=== PATIENT | female | born 1955 | race Caucasian/White ===

== ENCOUNTER 2017-07-10 06:17 | Day surgery (SDC) | payer OTHER ==
[~2017-07-10] VITALS: Ht 154.9 cm; Wt 87.3 kg
[2017-07-10 06:40] VITALS: Ht 154.9 cm; Wt 87.3 kg
[2017-07-10] MEDS ORDERED: LIDOCAINE 2% (SDV) 5 ML INJ ONE (07:11)
[2017-07-10] MEDS ORDERED: PROPOFOL 40 ML ONE (07:11)
[2017-07-10 07:14] VITALS: BP 137/85; RESP 14
[2017-07-10] MEDS ORDERED: OMEPRAZOLE (07:23)
[2017-07-10] MEDS ORDERED: ASPIRIN (07:23)
[2017-07-10] MEDS ORDERED: HTN MED (07:23)
[2017-07-10] MEDS ORDERED: FENTAnyl 50 MCG/ML VIAL ONE (07:30)
--- NOTE | 2017-07-10 08:19 | OPPN ---
Date/Time of Note Date/Time of Note DATE: 07/10/17 TIME: 08:18 Operative Report Preoperative Diagnosis Change in bowel habit Lower abdominal pain Postoperative Diagnosis Internal and external hemorrhoids Sigmoid colon polyp Operation/Procedure Performed Colonoscopy and biopsy Provider: MARQUIS VIGIL MD Anesthesia Type: MAC Estimated blood loss: none Transfusion Required: no Specimens Sigmoid colon polyp Grafts/Implants: none Complications: no MARQUIS VIGIL MD Jul 10, 2017 08:19
[2017-07-10 08:36] VITALS: BP 138/78; RESP 14
--- NOTE | 2017-07-10 09:11 | GILP ---
DATE OF PROCEDURE: 07/10/2017 PROCEDURE PERFORMED: Colonoscopy and biopsy. SURGEON: Neto Posadas MD. PREOPERATIVE DIAGNOSES: 1. Lower abdominal pain. 2. Change in bowel habits. POSTOPERATIVE DIAGNOSES: 1. Colonoscopy all the way to the cecum. 2. Small sigmoid colon polyp was removed using the biopsy forceps. 3. Internal and external hemorrhoids. INDICATIONS FOR PROCEDURE: The patient is a 61-year-old female patient who had change in the bowel habits and lower abdominal pain. The patient was scheduled for colonoscopy for further evaluation. The procedure and possible complications were well explained to the patient. The patient understood and consented to the procedure. DESCRIPTION OF PROCEDURE: Under the influence of anesthesia, the colonoscope was carefully introduced the rectum. Under direct vision, it was advanced all the way to the cecum. FINDINGS: The patient had a small sigmoid colon polyp and it was removed using the biopsy forceps. The patient had internal and external hemorrhoids. She tolerated the procedure very well. There was no complication from the procedure. At the end of procedure, she was awake with stable vital signs and she was discharged home in the care of her family. IMPRESSION: 1. Colonoscopy all the way to the cecum. 2. Small sigmoid colon polyp was removed using the biopsy forceps. 3. Internal and external hemorrhoids. PLAN: Next screening colonoscopy in 10 years. Dictated By: MD RADHA Cash/paty/danuta /Document#: [id number]
== END 2017-07-10 11:48 | disposition home or self-care (01) ==
LOC: GIL 06:17
PROVIDERS: ATTEND Internal Medicine Gastroenterology
DX: R19.4 Change in bowel habit (principal); D12.5 Benign neoplasm of sigmoid colon; K64.8 Other hemorrhoids; K64.4 Residual hemorrhoidal skin tags; I10 Essential (primary) hypertension; E66.9 Obesity, unspecified; Z68.36 Body mass index [BMI] 36.0-36.9, adult
CPT/HCPCS: 45380; 88305; J3010; Z7610